=== PATIENT | female | born 1990 | race Asian ===

== ENCOUNTER → 2021-09-29 10:12 | Outpatient (CLI) | payer OTHER, SELFPAY | PROVIDERS: PCP Registered Nurse Diabetes Educator; Visit Provider Physician Assistant | DX: J02.9 Acute pharyngitis, unspecified (principal) | CPT/HCPCS: 87070; 87077; 87147; 87186 ==

== ENCOUNTER → 2023-01-12 12:31 | Outpatient (CLI) | payer OTHER, MEDICAID, SELFPAY ==
[2023-01-12 13:22] LABS: Appearance Urine UA CLOUDY; Bilirubin Urine UA NEGATIVE (NEGATIVE); Color Urine UA YELLOW; Glucose Urine UA NEGATIVE (Negative); Ketones Urine UA NEGATIVE (NEGATIVE); Leukocyte Esterase Urine UA NEGATIVE (NEGATIVE); Nitrite Urine UA NEGATIVE (Negative); Occult Blood Urine UA 1+ (Negative); Protein Urine UA NEGATIVE (Negative); Urobilinogen Urine UA 0.2 E.U./dL (0.2)
[2023-01-12 13:26] LABS: pH Urine UA 7.5 (4.5-8.0)
[2023-01-12 13:36] LABS: Amorphous Sediment Urine 3+; Bacteria Urine Few (2-10); Culture Indicated Urine Cult Not Indicated; RBC Urine 0-1/HPF (0-5/HPF); Squamous Epithelial Cell Urine 1-5 /HPF (0-5/HPF); WBC Urine 0-1/HPF (0-5/HPF)
[2023-01-12 14:15] LABS: Add Manual Diff / Slide Review NO; Basophils Absolute Auto 0 /uL (0-100); Basophils Percent Auto 0.6 % (0-2); Eosinophils Absolute Auto 100 /uL (0-450); Eosinophils Percent Auto 1.2 % (2-4); Hematocrit 38.9 % (36-46); Hemoglobin 13.4 g/dL (12.0-16.0); Lymphocytes Absolute Auto 1600 /uL (1100-4500); Lymphocytes Percent Auto 21.1 % (25-40); Mean Corpuscular HGB Conc 34.3 % (30-36); Mean Corpuscular Hemoglobin 29.5 PG (26-34); Mean Corpuscular Volume 85.9 fL (80-100); Monocytes Absolute Auto 800 /uL (0-900); Monocytes Percent Auto 10.8 % (3-14); Neutrophils Absolute Auto 5000 /uL (1500-7000); Neutrophils Percent Auto 66.3 % (50-75); Platelet Count 266 X10^3/uL (150-400); Red Blood Cell Count 4.54 X10^6/uL (4.0-5.2); Red Cell Distribution Width 12.5 % (11.6-14.8); White Blood Cell Count 7.5 X10^3/uL (4.5-11.0)
[2023-01-12 17:09] LABS: Hepatitis B Surface Antigen NEGATIVE s/c (NEGATIVE); Rubella Antibody IgG 10.8 IU/mL (>15)
[2023-01-12 17:25] LABS: HIV 1 & 2 Ab/Ag 4th Gen Combo NEGATIVE (NEGATIVE); Hep C Virus Ab w/Reflex Quant NEGATIVE s/c (NEGATIVE)
[2023-01-13 06:36] LABS: RPR Screen Non Reactive (Non Reactive)
[2023-01-13 08:36] LABS: Varicella IgG Antibody 2633 index (Immune >165)
== END ==
PROVIDERS: PCP Registered Nurse Diabetes Educator; Referring Provider Family Medicine; Visit Provider Family Medicine
DX: Z34.01 Encounter for supervision of normal first pregnancy, first trimester (principal)
CPT/HCPCS: 36415; 80055; 81003; 81015; 86787; 86803; 86850; 86900; 86901; 87086; 87389

== ENCOUNTER → 2023-03-20 11:27 | Outpatient (CLI) | payer OTHER, MEDICAID, SELFPAY ==
[2023-03-23 13:43] LABS: Estriol, Free 2.61 ng/mL (.); Inhibin A, Dimeric 231.75 pg/mL (.); Inhibin A, MoM 1.45 (.); Maternal Ethnicity Other (.); Maternal Weight 144 lbs (.); Number of Fetuses No (.); OSBR Risk 1 IN 5411 (.); Results Report (.); Test Results *Screen Negative* (.); hCG, MoM 0.71 (.); hCG, Serum 20820 mIU/mL (.)
== END ==
PROVIDERS: PCP Registered Nurse Diabetes Educator; Referring Provider Family Medicine; Visit Provider Family Medicine
DX: Z34.01 Encounter for supervision of normal first pregnancy, first trimester (principal)
CPT/HCPCS: 36415; 82105; 82677; 84702; 86336

== ENCOUNTER → 2023-04-08 14:56 | Outpatient (CLI) | payer OTHER, MEDICAID, SELFPAY ==
--- NOTE | 2023-04-08 | DI.US.S_ITS ---
PROCEDURE: US OB >= 14 WEEKS FETUS INDICATIONS: ANATOMY SCAN OUTSIDE/PRIOR DATING DATA: Last menstrual period (LMP): November 13, 2022. LMP-based estimated date of delivery (ANDREW): August 20, 2023. First dating scan (date and location): January 12, 2023. Estimated date of delivery (ANDREW) from first dating scan: August 21, 2023. The calculations are made using the last menstrual period ANDREW of August 20, 2023. TECHNIQUE: Real-time scanning was performed of the fetus, with image documentation and biometric measurements. Endovaginal scanning: Not performed COMPARISON: None. FINDINGS: General: A single living intrauterine gestation is present. Presentation: Vertex. Placenta: Placental position is posterior , without previa. Amniotic fluid index: 18.7 cm, normal range is 5-24 cm. Single deepest vertical pocket is 6.9 cm. heart rate: 152 beats per minute. Maternal cervical canal: 2.8 cm long. Normal lower limit is 2.5 cm. biometrics: Biparietal diameter: 5.2 cm, 21 weeks and 5 days Head circumference: 18.2 cm, 20 weeks and 4 days Abdominal circumference: 15.3 cm, 20 weeks and 3 days Femur length: 3.4 cm, 20 weeks and 5 days Clinically estimated gestational age: 20 weeks and 6 days Composite gestational age from present scan: 20 weeks and 6 days Estimated weight and percentile: 367 g which correlates with the 33rd percentile for gestational age. Anatomic survey: Neuro: Ventricles are non-dilated at less than 10 mm. Cisterna magna is normal at 3-11 mm. Cerebellum is normal in size and morphology. Nuchal skin fold: Normal at less than 6 mm between 14-21 weeks gestational age. Face: Nose and lips, facial profile are normal. Spine: No evidence for spina bifida. Heart: There is a normal left ventricular outflow tract. Four-chamber heart and right ventricular outflow tract not well seen. Diaphragm: Diaphragm is not well seen. Stomach: Left-sided stomach is present. Kidneys: No hydronephrosis. Normal is less than 5 mm in 2nd trimester, less than 7 mm in 3rd trimester. Cord: 3-vessel cord has orthotopic insertion. Bladder: Normal in size. Extremities: All 4 extremities identified. IMPRESSION: Single living intrauterine gestation with estimated sonographic gestational age of approximately 20 weeks and 6 days which measures concordant with gestational age by last menstrual period. Estimated weight of approximately 367 g which correlates with the 33rd percentile for gestational age. Normal interval growth has occurred. The four-chamber heart, right ventricular outflow tract, and diaphragm were not well visualized secondary to positioning throughout the examination. Follow-up recommended. Maternal cervical length measuring at the lower limits of normal at 2.8 cm. We strive to produce accurate, complete, and clear reports of imaging services. To assist us in improving patient care, this report was composed using standard report templates and voice recognition software. Therefore, it may contain abnormal punctuation, insertions and/or omissions. Occasional wrong-word or sound-alike substitutions may occur. Though we review the report and make efforts to correct it, we do recommend that the report be read carefully in proper context to recognize any text inaccuracies. Dictated by: Harris Middleton M.D. on 04/09/2023 at 10:12 Approved by: Harris Middleton M.D. on 04/09/2023 at 10:18
== END ==
PROVIDERS: PCP Registered Nurse Diabetes Educator; Referring Provider Family Medicine; Visit Provider Family Medicine
DX: Z34.02 Encounter for supervision of normal first pregnancy, second trimester (principal); Z3A.20 20 weeks gestation of pregnancy
CPT/HCPCS: 76811; 76817

== ENCOUNTER → 2023-04-21 15:33 | Outpatient (CLI) | payer OTHER, MEDICAID, SELFPAY ==
--- NOTE | 2023-04-21 15:34 | DI.US.S_ITS ---
PROCEDURE: US OB FOLLOW UP INDICATIONS: FOLLOW UP CERVICAL LENGTH AND ANATOMY OUTSIDE/PRIOR DATING DATA: Last menstrual period (LMP): November 13, 2022. LMP-based estimated date of delivery (ANDREW): August 20, 2023. First dating scan (date and location): January 12, 2023. Estimated date of delivery (ANDREW) from first dating scan: August 21, 2023 TECHNIQUE: Real-time scanning was performed of the fetus, with image documentation. Endovaginal scanning: Not performed COMPARISON: None. FINDINGS: A single living intrauterine gestation is present. Presentation: Vertex Placenta: Placental position is posterior, without previa. Amniotic fluid index: 18.4 cm, normal range is 5-24 cm. Single deepest vertical pocket is 5.8 cm. heart rate: 163 beats per minute. Maternal cervical canal: 3.1 cm long. Normal lower limit is 2.5 cm. Estimated gestational age from initial scan: 22 weeks, 5 days. The 4 chamber heart and right ventricular outflow tract have a normal sonographic appearance. The diaphragm has a normal appearance. IMPRESSION: 1. Single live intrauterine gestation in vertex position. 2. Normal sonographic appearance of the four-chamber heart and right ventricular outflow tract. Dictated by: Umm Rogel M.D. on 04/21/2023 at 17:01 Approved by: Umm Rogel M.D. on 04/21/2023 at 17:04
== END ==
PROVIDERS: PCP Registered Nurse Diabetes Educator; Referring Provider Family Medicine; Visit Provider Family Medicine
DX: Z34.92 Encounter for supervision of normal pregnancy, unspecified, second trimester (principal); Z3A.22 22 weeks gestation of pregnancy
CPT/HCPCS: 76816; 76817

== ENCOUNTER → 2023-05-19 14:20 | Outpatient (CLI) | payer OTHER, MEDICAID, SELFPAY ==
[2023-05-19 17:14] LABS: Add Manual Diff / Slide Review NO; Basophils Absolute Auto 0 /uL (0-100); Basophils Percent Auto 0.3 % (0-2); Eosinophils Absolute Auto 100 /uL (0-450); Eosinophils Percent Auto 1.1 % (2-4); Hemoglobin 11.4 g/dL (12.0-16.0); Lymphocytes Absolute Auto 1700 /uL (1100-4500); Lymphocytes Percent Auto 17.6 % (25-40); Mean Corpuscular HGB Conc 34.6 % (30-36); Mean Corpuscular Hemoglobin 30.4 PG (26-34); Mean Corpuscular Volume 88.1 fL (80-100); Monocytes Absolute Auto 1000 /uL (0-900); Monocytes Percent Auto 10.8 % (3-14); Neutrophils Absolute Auto 6600 /uL (1500-7000); Neutrophils Percent Auto 70.2 % (50-75); Platelet Count 259 X10^3/uL (150-400); Red Blood Cell Count 3.75 X10^6/uL (4.0-5.2); Red Cell Distribution Width 13.4 % (11.6-14.8); White Blood Cell Count 9.4 X10^3/uL (4.5-11.0)
[2023-05-19 17:34] LABS: GTT (PREG) 1 Hour PP 50gm Dose 126 mg/dL (76-139)
== END ==
PROVIDERS: PCP Registered Nurse Diabetes Educator; Referring Provider Family Medicine; Visit Provider Family Medicine
DX: Z34.01 Encounter for supervision of normal first pregnancy, first trimester (principal)
CPT/HCPCS: 36415; 82950; 85025; 86850

== ENCOUNTER → 2023-07-18 09:58 | Outpatient (CLI) | payer OTHER, MEDICAID, SELFPAY ==
[2023-07-18 10:42] LABS: Influenza A - CEPHEID Flu A NEGATIVE (NEGATIVE); Influenza B - CEPHEID Flu B NEGATIVE (NEGATIVE); Respiratory Syncytial Virus Negative (Negative)
[2023-07-18 11:27] LABS: COVID-19 CEPHEID 4-PLEX PCR Negative (Negative)
== END ==
PROVIDERS: PCP Registered Nurse Diabetes Educator; Visit Provider Physician Assistant Medical
DX: R05.9 Cough, unspecified (principal)
CPT/HCPCS: 87635; 87400 ×2; 87420; 0241U

== ENCOUNTER → 2023-07-24 08:35 | Outpatient (CLI) | payer OTHER, MEDICAID, SELFPAY ==
[2023-07-25 09:41] LABS: Strep Grp B PCR POS for Grp B Strep
== END ==
PROVIDERS: PCP Registered Nurse Diabetes Educator; Visit Provider Family Medicine
DX: Z34.01 Encounter for supervision of normal first pregnancy, first trimester (principal)
CPT/HCPCS: 87186; 87653

== ENCOUNTER → 2023-07-31 09:13 | Outpatient (CLI) | payer OTHER, MEDICAID, SELFPAY | PROVIDERS: PCP Registered Nurse Diabetes Educator; Visit Provider Family Medicine | DX: Z34.01 Encounter for supervision of normal first pregnancy, first trimester (principal); Z88.0 Allergy status to penicillin | CPT/HCPCS: 87081; 87147; 87186 ==

== ENCOUNTER 2023-08-01 01:45 | Inpatient (IN) | payer OTHER, MEDICAID, SELFPAY ==
[2023-08-01] MEDS: fentaNYL 100 MCG/2 ML INJ 50 MCG IV (02:40)
[2023-08-01] MEDS: CLINDAMYCIN 900 MG/50 ML PIGGYBACK 50 MG IV ×2 (02:43→10:01)
[2023-08-01] MEDS: LACTATED RINGERS 1,000 ML 100 ML IV (02:44)
[2023-08-01 02:48] LABS: Add Manual Diff / Slide Review NO; Basophils Absolute Auto 0 /uL (0-100); Basophils Percent Auto 0.5 % (0-2); Eosinophils Absolute Auto 100 /uL (0-450); Eosinophils Percent Auto 1.1 % (2-4); Hematocrit 36.7 % (36-46); Hemoglobin 12.6 g/dL (12.0-16.0); Lymphocytes Absolute Auto 1700 /uL (1100-4500); Mean Corpuscular HGB Conc 34.4 % (30-36); Mean Corpuscular Hemoglobin 30.5 PG (26-34); Mean Corpuscular Volume 88.6 fL (80-100); Monocytes Absolute Auto 800 /uL (0-900); Monocytes Percent Auto 9.9 % (3-14); Neutrophils Absolute Auto 5500 /uL (1500-7000); Neutrophils Percent Auto 67.5 % (50-75); Platelet Count 224 X10^3/uL (150-400); Red Blood Cell Count 4.14 X10^6/uL (4.0-5.2); Red Cell Distribution Width 13.9 % (11.6-14.8); White Blood Cell Count 8.1 X10^3/uL (4.5-11.0)
[2023-08-01 02:49] VITALS: BP 140/86
--- NOTE | 2023-08-01 03:23 | P.HPOB_ITS ---
OB HPI Date/Time Date of admission: 08/01/23 Date Patient Seen: 08/01/23 Time Patient Seen: 03:24 History of Present Condition Chief complaint: LABOR : 1 Estimated Date of Delivery: 08/21/23 Estimated Gestational Age (weeks): 37w2d Narrative: Milla Peters is a 33 year old female G1 at 37w2d D=8wk US who presents to L&D for c/o possible SROM with labor. Pt had called MD on-call at approximatley 2200 to discuss possible PROM, small volume leak of clear fluid without contractions and +FM. Pt instructed to change into dry undergarments and present to L&D for further evaluation in restorationism of continued LOF. Pt subsequently called MD on-call at 0100 with c/o increasing abdominal cramping and was instructed to present to L&D for further evaluation. +FM, denies VB, +LOF, +ctx History of Present care: good care Dating criteria: LMP confirmed by 1st trimester US Ultrasounds: normal mid trimester US Obstetrical complications: none Medical complications: none Preadmission Labs Blood type: O (+) positive -: Antibody screen: negative, Cystic fibrosis screen: unknown, GBS status: negative (PCN allergy), HBsAG: negative, HIV: negative, HSV 1: unknown, HSV 2: unknown and RPR/VDLR: negative -: Chlamydia screen: not detected and Gonorrhea screen: not detected -: Rubella: not immune and Varicella: immune Quad screen: Normal 1 hr GTT: 126 Evaluation Evaluation Baseline heart rate: 130 Variability: Moderate (11-25) monitor accelerations: Present Monitor Decelerations: Absent Contraction Frequency (minutes): 2 Uterine Contraction Intensity: Strong/Firm Category of Tracing: Reactive Status: Category l Dilation (cm): 8 Effacement (%): 100 Comments: grossly ruptured on admission [facility] Medical History (Updated 07/24/23 @ 08:19 by Gretchen Bolden MD) Asthma Chicken pox (~1994) Surgical History (Updated 01/09/23 @ 10:40 by Sho Hull, LUIS) H/O tooth extraction Family History (Updated 01/09/23 @ 10:42 by Sho Hull, RN) Mother Adopted Ectopic Father Family estrangement Social History marital status: number of children: 0 household members: spouse and other (two roommates) lives independently: Yes caregiver/support person: No housing: house pets and animals: Yes (dog, cats, chickens, birds) education level: college (some college) occupational status: employed current occupational exposures/hazards: Yes (childcare) travel history: over 6 months ago seatbelt use: always helmet use: Yes water heater temp set < 120 deg: Yes working smoke detector in home: Yes fire extinguisher in home: Yes carbon monox detector in home: Yes firearms in home: Yes firearms unloaded and locked: Yes do you feel safe at home: Yes Smoking Status: Never smoker second hand exposure: No alcohol intake: former (rarely when not ) substance use type: does not use during the past year weight has: remained stable well-balanced diet: about half the time daily servings fruits/ve-4 (Usually ~2/day) caffeine: Yes (1 cup coffee ) Type(s) of exercise: walking Meds Home Medications and Allergies Home Medications Medication Instructions Recorded Confirmed Type vitamins no.175-iron 1 tab PO DAILY #30 tabs 04/10/23 07/31/23 Rx fumarate 29 mg-folic acid 1 mg tablet Allergies Allergy/AdvReac Type Severity Reaction Status Date / Time Penicillins Allergy Severe hives Verified 07/31/23 11:41 Review of Systems Review of Systems Narrative: gravid female, working through contractions, NAD Gastrointestinal Comments: abd cramping Genitourinary Comments: +LOF, clear OB Exam Vital signs Blood Pressure: 121/62 Pulse Rate: 83 Respiratory Rate: 20 Temperature: 96.6 F Narrative Exam Narrative: working through contractions HENMT Head: normal to inspection Resp Effort & Inspection: normal respiratory effort Cardio Rate: regular rate Extremities Lower extremity: Yes normal to inspection GI Other: gravid, size c/w dates joan cephalic 6.5# External Female Exam: Yes normal external appearance Speculum Exam - Vagina: Yes normal appearance of the vagina Presentation: vertex Amniotic Fluid: clear Objective Labs 08/01/23 02:30 Labs: Laboratory Results - last 24 hr 08/01/23 02:30 WBC 8.1 RBC 4.14 Hgb 12.6 Hct 36.7 MCV 88.6 MCH 30.5 MCHC 34.4 RDW 13.9 Plt Count 224 Neut % (Auto) 67.5 Lymph % (Auto) 21.0 L [place] % (Auto) 9.9 Eos % (Auto) 1.1 L Baso % (Auto) 0.5 Neut # (Auto) 5500 Lymph # (Auto) 1700 [place] # (Auto) 800 Eos # (Auto) 100 Baso # (Auto) 0 Assessment and Plan Assessment and Plan Assessment and Plan narrative: Term labor gross rupture confirmed on admission, known GBS+ with PCN allergy > clindamycin 900mg IV q8h per protocol maternal VSS/afebrile, Cat 1 tracing Anesthesia consult for epidural PNL: O+/ab screen neg, GC/CT neg, HepBsAg neg, HIV NR, RPR neg, VZV immune, r ubella non-immune, 1h OGTT 126, quad screen wnl Routine anatomy scan wnl, posterior placenta without previa h/o maternal asthma, no hemabate Continue routine monitoring advanced cervical dilation, will reassess pending improved analgesia with epidural anticipate vaginal delivery Patient is consented for vaginal delivery, vaginal operative delivery, section as well as transfusion of blood products as medically indicated. Time Spent with Patient Total time spent with greater than 50% in coordination of care (as documented) at patient's floor/unit and/or counseling patient:: 25 - 35 minutes
[2023-08-01 03:29] VITALS: BP 121/62; PULSE 83; RESP 20; TEMP 35.9
--- NOTE | 2023-08-01 04:03 | PM.AN.REGBLK ---
Regional Block Pre-procedure Procedure: Continuous Lumbar Epidural for L&D Attending OB provider: Geri Navarro PMH/ROS narrative: 33yo healthy female. Hx: No personal or family history of anesthesia problems. ASA Class: II Labs: Hct 36.7 % (36-46) 08/01/23 02:30 Plt Count 224 X10^3/uL (150-400) 08/01/23 02:30 Medications: Current Medications Generic Name Dose Route Start Last Admin Trade Name Freq PRN Reason Stop Dose Admin Calcium Carbonate 1,000 mg 08/01/23 02:16 Calcium Carbonate 500 Mg Tab PO Q4HR PRN Dyspepsia Carboprost Tromethamine 250 mcg 08/01/23 02:16 Carboprost 250 Mcg/Ml Ampul IM Q90M PRN Bleeding Diphenhydramine HCl 25 mg 08/01/23 03:56 Diphenhydramine 50 Mg/Ml Vial IV Q10M PRN Pruritis Ephedrine Sulfate 5 mg 08/01/23 03:56 Ephedrine 50 Mg/Ml Vial IV Q5M PRN Blood pressure decrease more than 20% of baseline. Fentanyl 50 mcg 08/01/23 02:16 08/01/23 02:40 Fentanyl 100 Mcg/2 Ml Inj IV 50 mcg Q1H PRN Administration Pain, Moderate (4-6) Lactated Ringer's 1,000 mls @ 100 mls/hr 08/01/23 02:30 08/01/23 02:44 Lactated Ringers IV 100 mls/hr CONT TAY Administration Oxytocin/Lactated Ringer's 30 unit in 500 mls @ 200 mls/hr 08/01/23 02:16 Oxytocin Premix IV CONT PRN Bleeding Protocol Tranexamic Acid 1,000 mg/ 100 mls @ 200 mls/hr 08/01/23 02:16 Sodium Chloride IV NOW PRN Bleeding Clindamycin Phosphate 900 mg in 50 mls @ 50 mls/hr 08/01/23 02:30 08/01/23 02:43 Cleocin IV 50 mls/hr Q8H TAY Administration FENT 2MCG/ML BUPIV 0.125% EPI 200 mcg in 100 mls @ 6 mls/hr 08/01/23 04:00 Fentanyl/Bupiv/Ns 2mcg/Ml - 0.125% EPIDURAL CONT TAY Lidocaine HCl 20 ml 08/01/23 02:16 Lidocaine 1% 20 Ml INJ INTRA-OP PRN Post Delivery Methylergonovine Maleate 0.2 mg 08/01/23 02:16 Methylergonovine 0.2 Mg Tablet PO Q6HR PRN Heavy Bleeding Methylergonovine Maleate 0.2 mg 08/01/23 02:16 Methylergonovine 0.2 Mg/Ml Vial IM NOW PRN Bleeding Misoprostol 800 mcg 08/01/23 02:16 Misoprostol 200 Mcg Tablet NC NOW PRN Bleeding Misoprostol 400 mcg 08/01/23 02:16 Misoprostol 200 Mcg Tablet SL NOW PRN Bleeding Nalbuphine HCl 2.5 mg 08/01/23 03:56 Nalbuphine 20 Mg/Ml Ampul IV Q10M PRN Pruritis Naloxone HCl 0.2 mg 08/01/23 02:16 Naloxone 0.4 Mg/Ml Vial IV Q2MIN PRN Opiate Reversal Ondansetron HCl 4 mg 08/01/23 02:16 Ondansetron 4 Mg/2 Ml Inj IV Q4HR PRN Nausea And Vomiting Oxytocin 10 unit 08/01/23 02:16 Oxytocin 10 Unit/Ml Vial IM NOW PRN Bleeding Allergies: Allergies Allergy/AdvReac Type Severity Reaction Status Date / Time Penicillins Allergy Severe hives Verified 07/31/23 11:41 Procedure Insertion date: 08/01/23 Insertion time: : Prep/Local: betadine x3 and 1% lidocaine Interspace: L3-L4 Patient position: sitting Needle: 18 gauge Hustead Loss of resistance with: saline ANNIE at (cm): 8 Catheter placed at SKIN (cm): 14 Catheter in SPACE (cm): 7 Insertion: No CSF, No Blood, No Paresthesia with insertion, No Paresthesia with injection and No Test dose reaction Initial Medications TEST DOSE time: 03:32 TEST DOSE: 1.5% lidocaine with epinephrine 1:200k (mL): 3 BOLUS DOSE time: :34 BOLUS DOSE (mL): 6 BOLUS DOSE med: other (2% Lidocaine) Infusion INFUSION: 0.125% bupivacaine and with fentanyl 2 mcg/mL Initial rate (mL/hr): 6 Subsequent interventions: Delivery time 1009. Post-procedure Anesthesia date START: 08/01/23 Anesthesia time START: 03:18 Anesthesia date END: 08/01/23 Anesthesia time END: 11:00 Post-procedure Anesthesia Assessment: Yes CV function: HR/BP stable, Yes Resp function: RR/sat/airway adequate, Yes Post-op hydration adequate, Yes Pain control adequate, Yes Nausea & vomiting absent, Yes Temperature > 36 C and Yes Mental status appropriate
--- NOTE | 2023-08-01 07:56 | PM.OBPNLAB ---
Date/Time Date Patient Seen: 08/01/23 Time Patient Seen: 07:56 Pain Control Pain control: tolerating well and epidural Pelvic Exam Dilation (cm): 10 Effacement (%): 100 station: +2 Amniotic membrane status: Ruptured Contractions Contraction frequency (min): 4 Contraction duration (min): 1 Contraction pattern: Regular Contraction phase: Resting Contraction intensity: Strong/Firm Status status: Category l Heart Rate Baseline: 160 Monitor Accelerations: Present Monitor Decelerations: Absent Monitor Variability: Moderate Comments: borderline tachycardia in setting of new maternal fever Assessment and Plan Assessment: active labor Plan: continuous present management Comments: set up to push new maternal fever 100.6, 650mg PO acetaminophen notify peds on delivery
[2023-08-01] MEDS: ACETAMINOPHEN 325 MG TABLET 650 MG PO ×3 (08:06→23:28)
--- NOTE | 2023-08-01 11:14 | PM.OBHP.IH.1 ---
OB HPI Date/Time Date of admission: 08/01/23 Date Patient Seen: 08/01/23 History of Present Condition Chief complaint: LABOR ANDREW Calculator Estimated Delivery Date Method Current WG Current Estimate 08/20/23 Manual 37w 2d Final ANDREW - CIPRIANO Other Estimates 08/20/23 LMP (Certain) 37w 2d 08/21/23 Ultrasound #1 37w 1d Estimated Gestational Age (weeks): 37w2d : 1 Para: 0 Narrative: 33yo at 37w2d here due to leaking fluid and contractions. Pt reports ROM around 11pm last night. She then started soumya shortly after. She had minimal bloody show. Her was uncomplicated. care: good care, initiated at week # (8) and pounds weight gain (41) Dating criteria OB: LMP confirmed by 1st trimester US Ultrasounds: normal 1st trimester US and normal mid trimester US Obstetrical complications: none Medical complications OB: none Preadmission Labs Last OB Lab Results: Blood Type O Positive 08/01/23 02:30 Antibody Screen Negative 08/01/23 02:30 Hematocrit 36.7 % (36-46) 08/01/23 02:30 Hemoglobin 12.6 g/dL (12.0-16.0) 08/01/23 02:30 Hepatitis B Surface Antigen Negative s/c (NEGATIVE) 01/12/23 12:38 Hepatitis C Antibody Negative s/c (NEGATIVE) 01/12/23 12:38 Rubella Antibody 10.8 IU/mL (>15) L 01/12/23 12:38 Varicella-Zoster IgG Antibody 2633 index (Immune >165) 01/12/23 12:38 Glucose 1 Hour 126 mg/dL (76-139) 05/19/23 15:38 Group B Streptococcus (PCR) Pos for grp b strep H 07/24/23 08:35 -: Urine: negative Genetic Screens: Quad screen: Normal External Labs -: Urine: negative Evaluation Evaluation Baseline heart rate: 160 Variability: Moderate (11-25) monitor accelerations: Present Monitor Decelerations: Variable Contraction Frequency (minutes): 3 Uterine Contraction Intensity: Strong/Firm Status: Category ll Dilation (cm): 10 Effacement (%): 100 station: +4 [facility] Medical History (Updated 07/24/23 @ 08:19 by Gretchen Bolden MD) Asthma Chicken pox (~1994) Surgical History (Updated 01/09/23 @ 10:40 by Sho Hull RN) H/O tooth extraction Family History (Updated 01/09/23 @ 10:42 by Sho Hull RN) Mother Adopted Ectopic Father Family estrangement Social History marital status: number of children: 0 household members: spouse and other (two roommates) lives independently: Yes caregiver/support person: No housing: house pets and animals: Yes (dog, cats, chickens, birds) education level: college (some college) occupational status: employed current occupational exposures/hazards: Yes (childcare) travel history: over 6 months ago seatbelt use: always helmet use: Yes water heater temp set < 120 deg: Yes working smoke detector in home: Yes fire extinguisher in home: Yes carbon monox detector in home: Yes firearms in home: Yes firearms unloaded and locked: Yes do you feel safe at home: Yes Smoking Status: Never smoker second hand exposure: No alcohol intake: former (rarely when not ) substance use type: does not use during the past year weight has: remained stable well-balanced diet: about half the time daily servings fruits/ve-4 (Usually ~2/day) caffeine: Yes (1 cup coffee ) Type(s) of exercise: walking Meds Home Medications and Allergies Home Medications Medication Instructions Recorded Confirmed Type vitamins no.175-iron 1 tab PO DAILY #30 tabs 04/10/23 07/31/23 Rx fumarate 29 mg-folic acid 1 mg tablet Allergies Allergy/AdvReac Type Severity Reaction Status Date / Time Penicillins Allergy Severe hives Verified 07/31/23 11:41 OB Exam Resp Effort & Inspection: normal respiratory effort Auscultation: clear to auscultation bilaterally Cardio Rate: regular rate Rhythm: regular rhythm Heart Sounds: S1 normal, S2 normal and no murmurs GI Inspection: non-distended Palpation: Yes soft and No tender Presentation: vertex Objective Labs 08/01/23 02:30 Labs: Laboratory Results - last 24 hr 08/01/23 02:30 WBC 8.1 RBC 4.14 Hgb 12.6 Hct 36.7 MCV 88.6 MCH 30.5 MCHC 34.4 RDW 13.9 Plt Count 224 Neut % (Auto) 67.5 Lymph % (Auto) 21.0 L [place] % (Auto) 9.9 Eos % (Auto) 1.1 L Baso % (Auto) 0.5 Neut # (Auto) 5500 Lymph # (Auto) 1700 [place] # (Auto) 800 Eos # (Auto) 100 Baso # (Auto) 0 Blood Type O Positive Antibody Screen Negative Assessment and Plan Assessment and Plan Assessment and Plan narrative: 33yo at 37w2d here in active labor with ROM at home. GBS positive with penicillin allergy - sensitivities pending. She was initiated on Clindamycin at admission. Pt had a single elevated temp to 100.5F, normal after that time with one dose of Tylenol. FHT in the 160s, not rising. No abdnormal discharge. ROM < 12hrs. Pt was managed by Dr Navarro overnight, assumed care for delivery this morning. Initiated on low dose of pitocin due to spacing of contractions. - Expectant management, anticipate - FHT reassuring overall - Continue to monitor for worsening tachycardia, maternal temperature. Would not diagnose with chorioamnionitis at this point - GBS positive, continue Clindamycin prophylaxis - Epidural in place for pain control
--- NOTE | 2023-08-01 11:14 | PM.OBPRVD ---
Labor & Delivery Delivery date: 08/01/23 Intrapartal Events: None Cervical ripening method: none Induction method: none Delivery augmentation: pitocin Delivery monitor: external FHT and external uterine Route of delivery: L&D Laceration Description: Vaginal - 1st Degree and Labial Quantitative Blood Loss: 559 Anesthesia Type: Epidural Complications: hemorrhage Narrative: PROCEDURE: at 37w2d presented in active labor with ROM at home and was admitted to Labor and Delivery. The patient progressed through the 1st stage over 6.5 hours. ROM occured at 23:00 with clear fluid. She received IV Clindamycin for GBS prophylaxis. Pain was controlled with an epidural. Pitocin was initiated due to spacing of contractions. The pt had a single elevated temperature to 100.5 with all subsequent temperatures in normal range. The patient progressed through the 2nd stage over 2.5 hours and delivered a viable female infant with APGARs 8/9 at 10:09 via . The cord was cut and clamped after it stopped pulsating. The placenta delivered with gentle cord traction, and appeared complete. The perineum and vagina were inspected with briskly bleeding vaginal and left labial lacerations repaired with 2-O Vicryl. The pt had hemorrhage due to her lacerations, no additional tocolytics were needed beyond the usual pitocin. Needle and sponge counts were correct.? The vagina was inspected and no items were left in situ. Milla was doing well with her and at bedside. PREPROCEDURE DIAGNOSIS: Intrauterine at 37w2d GBS positive RH positive POSTPROCEDURE DIAGNOSIS: Intrauterine at 37w2d, delivered Same as preprocedure hemorrhage Baby 1: gender: Female Presentation: vertex Position: Left Occiput Anterior Placenta delivery description: Spontaneous Cord Vessel Description: 3 Vessels score (1 min): 8 score (5 min): 9 weight: 8 lb 0.997 oz Plan for aftercare: Routine care
[2023-08-01] MEDS: IBUPROFEN 600 MG TABLET PO ×3 (11:38→23:29)
[2023-08-02] MEDS: ACETAMINOPHEN 325 MG TABLET 650 MG PO ×2 (05:37→11:34)
[2023-08-02] MEDS: IBUPROFEN 600 MG TABLET PO ×2 (05:38→11:35)
[2023-08-02 05:43] LABS: Add Manual Diff / Slide Review NO; Basophils Absolute Auto 100 /uL (0-100); Basophils Percent Auto 0.4 % (0-2); Eosinophils Absolute Auto 100 /uL (0-450); Eosinophils Percent Auto 0.8 % (2-4); Hematocrit 30.8 % (36-46); Hemoglobin 10.6 g/dL (12.0-16.0); Lymphocytes Absolute Auto 2900 /uL (1100-4500); Mean Corpuscular HGB Conc 34.4 % (30-36); Mean Corpuscular Hemoglobin 30.7 PG (26-34); Mean Corpuscular Volume 89.2 fL (80-100); Monocytes Absolute Auto 1300 /uL (0-900); Monocytes Percent Auto 10.8 % (3-14); Neutrophils Absolute Auto 7600 /uL (1500-7000); Platelet Count 171 X10^3/uL (150-400); Red Blood Cell Count 3.45 X10^6/uL (4.0-5.2); Red Cell Distribution Width 13.7 % (11.6-14.8); White Blood Cell Count 11.9 X10^3/uL (4.5-11.0)
[2023-08-02] MEDS: PRENATAL VIT,CALC/IRON/FOLIC 1 TABLET 1 TAB PO (09:47)
[2023-08-02] MEDS: DOCUSATE 100 MG CAPSULE PO (09:47)
[2023-08-02] MEDS: FERROUS SULFATE 325 MG TABLET PO (09:47)
--- NOTE | 2023-08-02 10:38 | PM.OBDS.1 ---
Discharge Providers Provider Date of admission: 08/01/23 01:45 Discharge Date: 08/02/23 Primary care physician: PARESH Wells Consults: 08/01/23 02:16 Consult to Anesthesiology Urgent Comment: Consulting Provider: Anesthesiologist Reason for consultation: Epidural 08/02/23 11:13 Consult to Property Caretaker Routine Comment: Discharge provider: Willa Emery MD Summary Hospital Course Date Patient Seen: 08/02/23 Time Patient Seen: 10:38 Hospital Course: who presented at 37w2d presented in active labor with ROM at home and was admitted to Labor and Delivery. The patient progressed through the 1st stage over 6.5 hours. ROM occured at 23:00 with clear fluid. She received IV Clindamycin for GBS prophylaxis due to a PCN allergy. Pain was controlled with an epidural. Pitocin was initiated due to spacing of contractions. The pt had a single elevated temperature to 100.5 with all subsequent temperatures in normal range. The patient progressed through the 2nd stage over 2.5 hours and delivered a viable female with APGARs 8/9 at 10:09 via . The cord was cut and clamped after it stopped pulsating. The placenta delivered with gentle cord traction, and appeared complete. The perineum and vagina were inspected with briskly bleeding vaginal and left labial lacerations repaired with 2-O Vicryl. The pt had hemorrhage due to her lacerations, no additional tocolytics were needed beyond the usual pitocin. Post she has been doing well. Vagial bleeding is minimal. Pain has been controlled with ibuprofen and tylenol. She is planning on using OCPs for control and will plan to discuss this with her PCP at 6 week PP check. She was isntructed to avoid intercourse until 6 week and to use condoms until she has started OCPS. Peripartum Data Delivery Method: Natural Vaginal Laceration Description: Vaginal - 1st Degree and Labial complications: other (PPH 2/2 labial and vaginal lacerations, no additional tocolytics needed ) Time Spent with Patient Time attestation: Total time spent providing and/or coordinating discharge services: Time spent: Less than 30 minutes Objective Labs 08/02/23 05:30 Labs: Laboratory Results - last 24 hr 08/02/23 05:30 WBC 11.9 H RBC 3.45 L Hgb 10.6 L Hct 30.8 L MCV 89.2 MCH 30.7 MCHC 34.4 RDW 13.7 Plt Count 171 Neut % (Auto) 64.0 Lymph % (Auto) 24.0 L [place] % (Auto) 10.8 Eos % (Auto) 0.8 L Baso % (Auto) 0.4 Neut # (Auto) 7600 H Lymph # (Auto) 2900 [place] # (Auto) 1300 H Eos # (Auto) 100 Baso # (Auto) 100 Exam Narrative Exam Narrative: GEN: Healthy appearing, well-developed, NAD. PSYCH: Good Judgment. AOx3. Normal memory, mood, and affect HEENT: -Head: NC/AT -Eyes: No discharge or redness CV: warm and well perfused LUNGS: breathing comfortably on RA ABD: fundus firm below the Umbilicus SKIN: Warm, well perfused. No skin rashes or abnormal lesions MSK: No deformities NEURO: No focal deficits Discharge Plan Discharge Plan Patient Disposition: Home Discharge orders & Medications Prescriptions: Continued PNV no.175-iron fum-folic acid 29-1 mg tablet 1 tab PO DAILY Qty: 30 5RF Follow up/Referrals: Alek Escalante ARNP [Primary Care Provider] - Visit Report/Discharge Packet Instructions: DI for Labor and Delivery, Vaginal Stand Alone Forms: Patient Portal/API, Stroke Signs & Symptoms Discharge Data Primary Care Provider: Alek Escalante Attending Provider: Geri Navarro Admit Date/Time: 08/01/23 01:45
[2023-08-02 11:06] VITALS: BP 106/65; PULSE 78; RESP 17; TEMP 36.8
[2023-08-02] MEDS: MEASLES,MUMPS,RUBELLA VACC/PF 0.5 ML VIAL SUBCUT (11:33)
== END 2023-08-02 12:59 | disposition home or self-care (01) | DRG 560 ==
PROVIDERS: Family Medicine; Admitting Provider Obstetrics & Gynecology; PCP Registered Nurse Diabetes Educator; Referring Provider Obstetrics & Gynecology; Visit Provider Obstetrics & Gynecology
DX: O42.02 Full-term premature rupture of membranes, onset of labor within 24 hours of rupture (principal); O99.824 Streptococcus B carrier state complicating childbirth; O76 Abnormality in fetal heart rate and rhythm complicating labor and delivery; O70.0 First degree perineal laceration during delivery; Z3A.37 37 weeks gestation of pregnancy; Z37.0 Single live birth; Z34.01 Encounter for supervision of normal first pregnancy, first trimester; Z88.0 Allergy status to penicillin
CPT/HCPCS: 36415; 59050; 59409; 85025; 86850; 86900; 86901; 87081; 87147; 87186; G0378; G0379; J3010

== ENCOUNTER → 2024-07-17 10:17 | Outpatient (CLI) | payer OTHER, SELFPAY ==
[2024-07-17 11:04] LABS: COVID-19 CEPHEID 4-PLEX PCR Negative (Negative); Influenza A - CEPHEID Flu A POSITIVE (NEGATIVE); Influenza B - CEPHEID Flu B NEGATIVE (NEGATIVE); Respiratory Syncytial Virus Negative (Negative)
== END ==
PROVIDERS: PCP Registered Nurse Diabetes Educator; Visit Provider Nurse Practitioner Family
DX: R05.9 Cough, unspecified (principal); R52 Pain, unspecified; J02.9 Acute pharyngitis, unspecified
CPT/HCPCS: 0241U; 87070

== ENCOUNTER → 2024-07-17 10:43 | Outpatient (CLI) | payer OTHER, SELFPAY ==
--- NOTE | 2024-07-17 10:45 | DI.RAD.S_ITS ---
PROCEDURE: XR CHEST 2V INDICATIONS: Cough TECHNIQUE: 2 views of the chest were acquired. COMPARISON: None. FINDINGS: Mild bilateral perihilar and lower lobe peribronchial thickening more than expected for expiratory result and subsegmental atelectasis. Bronchitis, viral infection, asthma or other process could be considered. Cardiopericardial silhouette and pulmonary vasculature within normal limits. No pneumothorax, no pleural effusion, no lobar consolidation. IMPRESSION: Mild bilateral peribronchial thickening as discussed above. Follow-up suggested. If symptoms persist or worsen, CT chest could be performed. Dictated by: Deepak Ramos M.D. on 07/17/2024 at 12:29 Approved by: Deepak Ramos M.D. on 07/22/2024 at 21:55
== END ==
LOC: RAD 10:45
PROVIDERS: PCP Registered Nurse Diabetes Educator; Referring Provider Nurse Practitioner Family; Visit Provider Nurse Practitioner Family
DX: R05.9 Cough, unspecified (principal); R91.8 Other nonspecific abnormal finding of lung field; R52 Pain, unspecified; J02.9 Acute pharyngitis, unspecified
CPT/HCPCS: 87635; 87400 ×2; 87420; 0241U; 71046; 87070

== ENCOUNTER → 2025-03-06 09:01 | Outpatient (CLI) | payer OTHER, SELFPAY ==
[2025-03-06 09:37] LABS: Add Manual Diff / Slide Review NO; Hematocrit 38.1 % (36-46); Hemoglobin 13.0 g/dL (12.0-16.0); Lymphocytes Absolute Auto 1600 /uL (1100-4500); Mean Corpuscular HGB Conc 34.2 % (30-36); Mean Corpuscular Hemoglobin 29.0 PG (26-34); Mean Corpuscular Volume 84.7 fL (80-100); Platelet Count 283 X10^3/uL (150-400)
[2025-03-06 10:10] LABS: Natera Collection Specimen Collected
[2025-03-07 15:12] LABS: Hepatitis B Surface Antigen NEGATIVE s/c (NEGATIVE)
[2025-03-07 15:26] LABS: HIV 1 & 2 Ab/Ag 4th Gen Combo NEGATIVE (NEGATIVE); Hep C Virus Ab w/Reflex Quant NEGATIVE s/c (NEGATIVE)
== END ==
PROVIDERS: PCP Family Medicine; Referring Provider Family Medicine; Visit Provider Family Medicine
DX: O30.8 Other specified multiple gestation (principal); O30.001 Twin pregnancy, unspecified number of placenta and unspecified number of amniotic sacs, first trimester
CPT/HCPCS: 36415; 80055; 86787; 86803; 86850; 86900; 86901; 87389

== ENCOUNTER → 2025-03-07 14:58 | Outpatient (CLI) | payer OTHER, SELFPAY ==
--- NOTE | 2025-03-07 14:59 | DI.US.S_ITS ---
PROCEDURE: US OB <= 14 WK FETUS ADD GEST INDICATIONS: dating / viability OUTSIDE/PRIOR DATING DATA: ANDREW by LMP 09/28/2025. ANDREW by 1st dating scan 09/30/2025 TECHNIQUE: Real-time scanning was performed of the fetuses and maternal pelvic organs, with image documentation. Endovaginal scanning: Performed for better visualization of the fetuses and maternal adnexal structures. COMPARISON: None. FINDINGS: General: An intrauterine diamniotic/ dichorionic twin is present, as evidenced by separate placental sites and/or intervening membrane thickness of greater than 2 mm at this early gestational age. Two yolk sacs are present. Embryo A: 3.4 cm. Ten weeks and 2 days. Heart rate: 178 BPM Embryo B: 4 cm. Ten weeks and 6 days Heart rate: 180 BPM Suspect left corpus luteum cyst. IMPRESSION: Dichorionic diamniotic twin with cardiac motion. Ultrasound age is 10 weeks and 2 days and 10 weeks and 6 days. Slightly greater than expected heart rate, 180 and 178 BPM. Dictated by: Sang Workman M.D. on 03/07/2025 at 21:57 Approved by: Sang Workman M.D. on 03/07/2025 at 22:00
== END ==
PROVIDERS: PCP Family Medicine; Referring Provider Family Medicine; Visit Provider Family Medicine
DX: O30.041 Twin pregnancy, dichorionic/diamniotic, first trimester (principal); Z3A.10 10 weeks gestation of pregnancy
CPT/HCPCS: 76801; 76802